=== PATIENT | male | born 1990 | race Caucasian/White ===

== ENCOUNTER 2018-12-31 10:33 | Emergency (ER) | payer MEDICARE ==
[2018-12-31] MEDS ORDERED: SULFAMETHOXAZOLE/TRIMETHOPRIM 800-160 MG TABLET PO ONE (10:51)
--- NOTE | 2018-12-31 10:54 | ER Document Report ---
HPI - HPI Patient complains to provider of: abscess Time Seen by Provider: 12/31/18 10:48 Onset: Last week Onset/Duration: Worse Quality of pain: Achy Pain Level: 2 Context: Patient states he has had a cyst to the right side of his neck for the past 2 years. Patient states that 5 days ago area became more tender swollen and red. Patient denies any fever or history of MRSA. Patient saw his primary doctor 2 days ago was placed on Keflex. Patient denies any improvement of his symptoms. Associated Symptoms: denies: Fever Exacerbated by: Movement Relieved by: Denies Similar symptoms previously: Yes Recently seen / treated by doctor: Yes - ROS ROS below otherwise negative: Yes Systems Reviewed and Negative: Yes All other systems reviewed and negative - CONSTITUTIONAL Constitutional: DENIES: Fever, Chills - NEURO Neurology: DENIES: Headache - GASTROINTESTINAL Gastrointestinal: DENIES: Nausea - MUSCULOSKELETAL Musculoskeletal: REPORTS: Neck Pain - DERM Skin Color: Erythema Notes: Abscess Past Medical History - General Information source: Patient - Social History Smoking Status: Never Smoker Frequency of alcohol use: Occasional Drug Abuse: None Occupation: none Family History: None, Reviewed & Not Pertinent Psychiatric Medical History: Reports: Hx Anxiety, Hx Depression, Hx Post Traumatic Stress Disorder Surgical Hx: Negative - Immunizations Hx Diphtheria, Pertussis, Tetanus Vaccination: Yes Vertical Provider Document - CONSTITUTIONAL Agree With Documented VS: Yes Exam Limitations: No Limitations General Appearance: WD/WN, No Apparent Distress - INFECTION CONTROL TRAVEL OUTSIDE OF THE [place] IN LAST 30 DAYS: No - HEENT HEENT: Atraumatic, Normocephalic - NECK Neck: Supple. negative: Lymphadenopathy-Left, Lymphadenopathy-Right Notes: Pointing abscess to right side of neck - RESPIRATORY Respiratory: Breath Sounds Normal, No Respiratory Distress - CARDIOVASCULAR Cardiovascular: Regular Rate, Regular Rhythm - MUSCULOSKELETAL/EXTREMETIES Musculoskeletal/Extremeties: MAEW - NEURO Level of Consciousness: Awake, Alert, Appropriate Motor/Sensory: No Motor Deficit - DERM Integumentary: Warm, Dry, Abscess - Pointing abscess to right side of neck Course - Vital Signs Vital signs: Temp Pulse Resp BP Pulse Ox 98.3 F 89 16 134/77 H 99 12/31/18 10:40 12/31/18 10:40 12/31/18 10:40 12/31/18 10:40 12/31/18 10:40 Procedures - Incision and Drainage Right Neck Type: Simple Anesthetic type: 1% Lidocaine Blade size: 11 I&D procedure: Betadine prep applied Incision Method: Incision made by scalpel Amount/type of drainage: mod amount of purulent drainage Adult Head Front/Back picture: 1 - abscess Discharge - Discharge Clinical Impression: Abscess, Encounter for incision and drainage procedure Condition: Good Disposition: HOME, SELF-CARE Instructions: Abscess ([facility]), Cephalexin ([facility]), Post Incision and Drainage, Trimethoprim-Sulfa ([facility]) Additional Instructions: Return immediately for any new or worsening symptoms Followup with your primary care provider, call tomorrow to make a followup appointment Continue to take your Keflex as previously prescribed in addition to the Ba ctrim. Prescriptions: Hydrocodone/Acetaminophen [Tekoa 5-325 mg Tablet] 1 tab PO Q6 PRN #8 tablet PRN Reason: Sulfamethoxazole/Trimethoprim [Bactrim Ds Tablet] 1 each PO BID #20 tablet Referrals: HOMERO VUONG MD [NO LOCAL MD] - Follow up as needed
[2018-12-31 11:37] VITALS: BP 129/76
== END 2018-12-31 11:35 | disposition home or self-care (01) ==
LOC: ER 10:33
DX: L02.11 Cutaneous abscess of neck (principal)
CPT/HCPCS: 99283; 10060; A9270

== ENCOUNTER 2019-09-07 17:24 | Emergency (ER) | payer MEDICARE ==
--- NOTE | 2019-09-07 18:08 | ER Document Report ---
ED Medical Screen (RME) - General Chief Complaint: Psych Problem Stated Complaint: SUICIDAL IDEATION Time Seen by Provider: 09/07/19 17:55 Primary Care Provider: JACQUELINE LUZ [Primary Care Provider] - Follow up as needed Notes: Patient is a 29-year-old male who presents to the emergency department with a chief complaint of suicidal ideation. Patient reports he has been drinking alcohol heavily and daily for the past few months. Patient reports today he is unsure how much he drank but he has had more than 10 shots of liquor. Patient reports he has had a lot going on. Patient reports that he recently lost his fr om from suicide and he has been down since then. Patient reports he has been having suicidal thoughts for a while but when asking the patient if he has a specific plan he becomes very quiet. TRAVEL OUTSIDE OF THE [place] IN LAST 30 DAYS: No - Related Data Allergies/Adverse Reactions: No Known Allergies Allergy (Verified 01/24/14 17:20) Home Medications: seroquel. prazasoin Past Medical History - Social History Frequency of alcohol use: Heavy Drug Abuse: None Renal/ Medical History: Denies: Hx Peritoneal Dialysis Psychiatric Medical History: Reports: Hx Anxiety, Hx Depression, Hx Post Traumatic Stress Disorder - Immunizations Hx Diphtheria, Pertussis, Tetanus Vaccination: Yes Physical Exam - Vital signs Vitals: Temp Pulse Resp BP Pulse Ox 97.4 F 102 H 20 121/70 99 09/07/19 17:47 09/07/19 17:47 09/07/19 17:47 09/07/19 17:47 09/07/19 17:47 Course - Re-evaluation Re-evalutation: 09/07/19 18:08 I have greeted and performed a rapid initial assessment of this patient. A comprehensive ED assessment and evaluation of the patient, analysis of test results and completion of the medical decision making process will be conducted by additional ED providers. - Vital Signs Vital signs: Temp Pulse Resp BP Pulse Ox 97.4 F 102 H 20 121/70 99 09/07/19 17:47 09/07/19 17:47 09/07/19 17:47 09/07/19 17:47 09/07/19 17:47 Doctor's Discharge - Discharge Referrals: [facility] [Primary Care Provider] - Follow up as needed
[2019-09-07 18:52] LABS: ABSOLUTE BASOPHILS # (AUTO) 0.1 10^3/uL (0.0-0.2); ABSOLUTE EOSINOPHILS # (AUTO) 0.3 10^3/uL (0.0-0.6); ABSOLUTE LYMPHOCYTES (AUTO) 2.7 10^3/uL (0.5-4.7); ABSOLUTE MONOCYTES (AUTO) 0.6 10^3/uL (0.1-1.4); ABSOLUTE NEUT (AUTO) 5.4 10^3/uL (1.7-8.2); BASOPHILS % (AUTO) 0.9 % (0-2); EOSINOPHILS % (AUTO) 2.9 % (0-6); HEMATOCRIT 45.6 % (37.9-51.0); HEMOGLOBIN 16.4 g/dL (13.5-17.0); LYMPHOCYTES % (AUTO) 29.9 % (13-45); MEAN CORPUSCULAR HEMOGLOBIN 31.9 pg (27.0-33.4); MEAN CORPUSCULAR VOLUME 89 fl (80-97); MONOCYTES % (AUTO) 6.6 % (3-13); PLATELET COUNT 191 10^3/uL (150-450); RED BLOOD COUNT 5.16 10^6/uL (4.35-5.55); RED CELL DISTRIBUTION WIDTH 13.2 % (11.5-14.0); SEGMENTED NEUTROPHILS % (AUTO) 59.7 % (42-78); TOTAL CELLS COUNTED % (AUTO) 100 %; WHITE BLOOD COUNT 9.1 10^3/uL (4.0-10.5)
[2019-09-07 18:55] LABS: APPEARANCE,URINE CLEAR; BILIRUBIN,URINE NEGATIVE (NEGATIVE); COLOR,URINE STRAW; GLUCOSE, URINE NEGATIVE (NEGATIVE); KETONES,URINE NEGATIVE (NEGATIVE); LEUKOCYTE ESTERASE,URINE NEGATIVE (NEGATIVE); NITRITE,URINE NEGATIVE (NEGATIVE); PROTEIN,URINE NEGATIVE (NEGATIVE); URINE SPECIFIC GRAVITY 1.009; UROBILINOGEN,URINE NEGATIVE mg/dL (<2.0)
[2019-09-07 19:07] LABS: ACETAMINOPHEN < 10 ug/mL (10-30); ALBUMIN 5.3 g/dL (3.5-5.0); ALCOHOL 214 mg/dL (NONE DETECTED); ALKALINE PHOSPHATASE 85 U/L (38-126); ANION GAP 15 (5-19); ASPARTATE AMINO TRANSFERASE 28 U/L (17-59); BILIRUBIN,DIRECT 0.1 mg/dL (0.0-0.4); BILIRUBIN,TOTAL 0.9 mg/dL (0.2-1.3); BLOOD UREA NITROGEN 15 mg/dL (7-20); CALCIUM 9.5 mg/dL (8.4-10.2); CARBON DIOXIDE 27 mmol/L (22-30); CHLORIDE 103 mmol/L (98-107); GLUCOSE 85 mg/dL (75-110); POTASSIUM 4.1 mmol/L (3.6-5.0); SALICYLATE < 1.0 mg/dL (2.0-20.0); TOTAL PROTEIN 8.4 g/dL (6.3-8.2)
[2019-09-07 19:12] LABS: URINE AMPHETAMINES SCREEN NEGATIVE; URINE BARBITURATES SCREEN NEGATIVE; URINE BENZODIAZEPINES SCREEN NEGATIVE; URINE COCAINE SCREEN NEGATIVE; URINE MARIJUANA (THC) SCREEN NEGATIVE; URINE METHADONE SCREEN NEGATIVE; URINE PHENCYCLIDINE SCREEN NEGATIVE
--- NOTE | 2019-09-07 20:15 | EKG REPORT ---
SEVERITY:- NORMAL ECG - SINUS RHYTHM : Confirmed by: Zulema Esparza MD 07-Sep-2019 20:14:31
--- NOTE | 2019-09-07 21:20 | ER Document Report ---
ED Psych Disorder / Suicide - General Chief Complaint: Psych Problem Stated Complaint: SUICIDAL IDEATION Time Seen by Provider: 09/07/19 17:55 Primary Care Provider: JACQUELINE LUZ [NO LOCAL MD] - Follow up as needed Notes: RMLanette NOTE: Patient is a 29-year-old male who presents to the emergency department with a chief complaint of suicidal ideation. Patient reports he has been drinking alcohol heavily and daily for the past few months. Patient reports today he is unsure how much he drank but he has had more than 10 shots of liquor. Patient reports he has had a lot going on. Patient reports that he recently lost his from from suicide and he has been down since then. Patient reports he has been having suicidal thoughts for a while but when asking the patient if he has a specific plan he becomes very quiet. MY HPI: When I attempt to speak with patient he rolls over in bed and will not engage. His eyes are open and he is making eye contact but will not answer any of my questions. He is moving all extremities without difficulty. When I ask him why he is in the ED he says, "I want to , now leave me alone!" TRAVEL OUTSIDE OF THE [place] IN LAST 30 DAYS: No - Related Data Allergies/Adverse Reactions: No Known Allergies Allergy (Verified 01/24/14 17:20) Home Medications: seroquel. prazasoin Past Medical History - General Information source: Patient - Social History Smoking Status: Never Smoker Frequency of alcohol use: Heavy Drug Abuse: None Family History: None, Reviewed & Not Pertinent Patient has suicidal ideation: Yes Patient has homicidal ideation: No Renal/ Medical History: Denies: Hx Peritoneal Dialysis Psychiatric Medical History: Reports: Hx Anxiety, Hx Depression, Hx Post Traumatic Stress Disorder - Immunizations Hx Diphtheria, Pertussis, Tetanus Vaccination: Yes Review of Systems - Review of Systems Constitutional: denies: Fever EENT: No symptoms reported Cardiovascular: No symptoms reported Respiratory: No symptoms reported Gastrointestinal: No symptoms reported Genitourinary: No symptoms reported Male Genitourinary: No symptoms reported Musculoskeletal: No symptoms reported Skin: No symptoms reported Hematologic/Lymphatic: No symptoms reported Neurological/Psychological: See HPI Physical Exam - Vital signs Vitals: Temp Pulse Resp BP Pulse Ox 97.4 F 102 H 20 121/70 99 09/07/19 17:47 09/07/19 17:47 09/07/19 17:47 09/07/19 17:47 09/07/19 17:47 - Notes Notes: GENERAL: Alert, interacts well. No acute distress. HEAD: Normocephalic, atraumatic. EYES: Pupils equal, round, and reactive to light. Extraocular movements intact. ENT: Oral mucosa moist, tongue midline. NECK: Full range of motion. Supple. Trachea midline. LUNGS: Clear to auscultation bilaterally, no wheezes, rales, or rhonchi. No respiratory distress. HEART: Regular rate and rhythm. No murmur ABDOMEN: Soft, non-tender. Non-distended. Bowel sounds present in all 4 quadrants. EXTREMITIES: Moves all 4 extremities spontaneously. No edema, normal radial and dorsalis pedis pulses bilaterally. No cyanosis. BACK: no cervical, thoracic, lumbar midline tenderness. No saddle anesthesia, normal distal neurovascular exam. NEUROLOGICAL: Alert and oriented x3. Normal speech. PSYCH: flat affect, depressed mood. SKIN: Warm, dry, normal turgor. No rashes or lesions noted. Course - Re-evaluation Re-evalutation: 09/07/19 21:18 At 0014 hours Pts etoh should be below 100 and he will be medically cleared for Psych eval. 09/07/19 00:15 I have again evaluated patient at bedside. He is conscious alert and oriented x4. States "I drank too much." I then asked him if he wants to hurt himself patient voices "I did." Patient will not tell me if he has a plan. he is denying HI. Patient is currently cleared for psychiatric evaluation. - Vital Signs Vital signs: Temp Pulse Resp BP Pulse Ox 97.4 F 102 H 20 121/70 99 09/07/19 17:47 09/07/19 17:47 09/07/19 17:47 09/07/19 17:47 09/07/19 17:47 - Laboratory Result Diagrams: 09/07/19 18:14 09/07/19 18:14 Laboratory results interpreted by me: 09/07/19 18:14 Total Protein 8.4 H Albumin 5.3 H Salicylates < 1.0 L Acetaminophen < 10 L Discharge - Discharge Clinical Impression: Suicidal thoughts, Alcohol abuse Condition: Stable Disposition: PSYCH HOSP/UNIT [facility]errals: [facility] [NO LOCAL MD] - Follow up as needed
[2019-09-08 10:10] VITALS: BP 133/84
--- NOTE | 2019-09-08 13:08 | ER Document Report ---
Doctor's Note Notes: 09/08/19 13:07 PHYSICAL EXAMINATION: GENERAL: Appears well, healthy, well-nourished, no acute distress. LUNGS: Equal breath sounds bilaterally and clear to auscultation. No wheezes rales or rhonchi. CARDIOVASCULAR: S1-S2, regular rate, regular rhythm. Radial pulses 2+, normal. ABDOMEN: Normoactive bowel sounds. Soft, nontender, no guarding, no rebound tenderness, and no masses palpated. PSYCH: Normal mood, normal affect. Patient states that he feels better now. He denies any suicidal or Malik ideation. Patient states that he got really drunk last night and now feels sober. Patient states that he had a "slip up." He states that he had not been drinking for a while, but he spoke with a friend which triggered some things from [place] and he ended up drinking yesterday all day. She states that he feels a little dehydrated. I offered him water and Gatorade. 09/08/19 15:39 Patient has a good plan for discharge. Mental health has evaluated the patient. Resending paperwork done by Dr. Capps. Patient is safe for discharge. Follow-up precautions were given. Verbal discharge instructions were given to the patient. They verbalized understanding. They are stable for discharge.
== END 2019-09-08 17:35 | disposition home or self-care (01) ==
LOC: ER 17:24
DX: R45.851 Suicidal ideations (principal); F10.10 Alcohol abuse, uncomplicated; F43.10 Post-traumatic stress disorder, unspecified
CPT/HCPCS: 36415; 80053; 80307; 81001; 85025; 93005; 93010; 99284

== ENCOUNTER 2019-10-26 17:10 | Emergency (ER) | payer MEDICARE ==
--- NOTE | 2019-10-26 17:43 | ER Document Report ---
ED Medical Screen (RME) - General Chief Complaint: Inability to Void Stated Complaint: DIFFICULTY URINATING Time Seen by Provider: 10/26/19 17:36 TRAVEL OUTSIDE OF THE [place] IN LAST 30 DAYS: No - HPI Notes: 10/26/19 17:42 Patient is a 29-year-old male with a history of mental health disorders and on prazosin and Seroquel who presents complaining of feeling of incomplete void, urinary urgency, feeling distended, voiding only a few drops out at a time that began today. Patient states that he urinated normally this morning, but since then has not been able to adequately urinate. Denies fever. No vomiting or diarrhea. I have treated and performed a rapid initial assessment of this patient. A comprehensive ED assessment and evaluation of the patient, analysis of test results and completion of medical decision making process will be conducted by additional ED providers. PHYSICAL EXAMINATION: GENERAL: Well-appearing, well-nourished and in no acute distress. A&Ox4. Answers questions appropriately. - Related Data Allergies/Adverse Reactions: No Known Allergies Allergy (Verified 01/24/14 17:20) Past Medical History - Social History Frequency of alcohol use: None Drug Abuse: None Renal/ Medical History: Denies: Hx Peritoneal Dialysis Psychiatric Medical History: Reports: Hx Anxiety, Hx Depression, Hx Post Traumatic Stress Disorder - Immunizations Hx Diphtheria, Pertussis, Tetanus Vaccination: Yes Physical Exam - Vital signs Vitals: Temp Pulse Resp BP Pulse Ox 98.7 F 88 17 131/84 H 98 10/26/19 17:29 10/26/19 17:29 10/26/19 17:29 10/26/19 17:29 10/26/19 17:29 Course - Vital Signs Vital signs: Temp Pulse Resp BP Pulse Ox 98.7 F 88 17 131/84 H 98 10/26/19 17:29 10/26/19 17:29 10/26/19 17:29 10/26/19 17:29 10/26/19 17:29
[2019-10-26] MEDS ORDERED: OXYCODONE HCL IR 5 MG TABLET PO ONE (18:12)
[2019-10-26] MEDS ORDERED: LIDOCAINE 2% URO-JET 5 ML KIT MM ONE (18:12)
[2019-10-26 19:56] LABS: HEMOGLOBIN 15.1 g/dL (13.5-17.0); MEAN CORPUSCULAR HEMOGLOBIN 31.1 pg (27.0-33.4); MEAN CORPUSCULAR VOLUME 89 fl (80-97); PLATELET COUNT 166 10^3/uL (150-450); RED BLOOD COUNT 4.85 10^6/uL (4.35-5.55); RED CELL DISTRIBUTION WIDTH 13.2 % (11.5-14.0)
--- NOTE | 2019-10-26 20:07 | ER Document Report ---
ED GI/ - General Mode of Arrival: Ambulatory Information source: Patient TRAVEL OUTSIDE OF THE [place] IN LAST 30 DAYS: No - HPI Patient complains to provider of: Urinary retention. No: Abdominal pain, Flank pain Onset: This afternoon Timing/Duration: Gradual Quality of pain: Pressure Pain Level: Denies Sexual history: Active Associated symptoms: Urinary hesitancy, Urinary retention. denies: Chills, Diarrhea, Dysuria, Fever Exacerbated by: Denies Relieved by: Denies Similar symptoms previously: No Recently seen / treated by doctor: No <HEMA MESA - Last Filed: 10/27/19 00:13> <STONE MERCADO - Last Filed: 10/27/19 02:22> - General Chief Complaint: Inability to Void Stated Complaint: DIFFICULTY URINATING Time Seen by Provider: 10/26/19 17:36 Primary Care Provider: THERESA GEORGE MD [NO LOCAL MD] - Follow up in 3-5 days (Dr. George stated if he wanted to drive to [place] you could see him at 8:45 in the morning or call his office for a appointment next week) Notes: Patient presents complaining of inability to void. Patient states that he voided normally 7:00 this morning and states that he had intercourse and had some difficulty voiding thereafter. Patient states he had voided small amounts throughout the day and then around 1 PM started to have difficulty voiding. Patient feels as though he still needs to void. Patient denies any abdominal pain or flank pain. He does state he has had problems with voiding after having intercourse in the past but that the symptoms typically resolve. Patient states today he has still had persistent difficulty in voiding. Patient denies any known prostate problems. (HEMA MESA) - Related Data Allergies/Adverse Reactions: No Known Allergies Allergy (Verified 01/24/14 17:20) Past Medical History - General Information source: Patient - Social History Smoking Status: Never Smoker Frequency of alcohol use: None Drug Abuse: None Occupation: None Lives with: Spouse/Significant other Family History: None, Reviewed & Not Pertinent Patient has suicidal ideation: No Patient has homicidal ideation: No Renal/ Medical History: Denies: Hx Peritoneal Dialysis Psychiatric Medical History: Reports: Hx Anxiety, Hx Depression, Hx Post Traumat ic Stress Disorder Surgical Hx: Negative - Immunizations Hx Diphtheria, Pertussis, Tetanus Vaccination: Yes <HEMA MESA - Last Filed: 10/27/19 00:13> Review of Systems - Review of Systems Constitutional: No symptoms reported. denies: Fever, Recent illness EENT: No symptoms reported Cardiovascular: No symptoms reported Respiratory: No symptoms reported Gastrointestinal: No symptoms reported. denies: Abdominal pain, Nausea, Vomiting Genitourinary: Retention. denies: Dysuria, Flank pain, Hematuria Male Genitourinary: No symptoms reported Musculoskeletal: No symptoms reported. denies: Back pain Skin: No symptoms reported Hematologic/Lymphatic: No symptoms reported Neurological/Psychological: No symptoms reported <HEMA MESA - Last Filed: 10/27/19 00:13> Physical Exam - General General appearance: Appears well, Alert In distress: None - HEENT Head: Normocephalic, Atraumatic Eyes: Normal Conjunctiva: Normal Nasal: Normal Mouth/Lips: Normal Mucous membranes: Normal Neck: Normal, Supple. No: Lymphadenopathy - Respiratory Respiratory status: No respiratory distress Chest status: Nontender Breath sounds: Normal. No: Rales, Rhonchi, Stridor, Wheezing Chest palpation: Normal - Cardiovascular Rhythm: Regular Heart sounds: S1 appreciated, S2 appreciated - Abdominal Inspection: Normal Distension: Distended bladder Bowel sounds: Normal Tenderness: Nontender Organomegaly: No organomegaly - Back Back: Normal, Nontender. No: CVA tenderness - Extremities General upper extremity: Normal inspection, Normal strength General lower extremity: Normal inspection, Normal strength - Neurological Neuro grossly intact: Yes Cognition: Normal Orientation: AAOx4 Som Coma Scale Eye Opening: Spontaneous Allred Coma Scale Verbal: Oriented Allred Coma Scale Motor: Obeys Commands Allred Coma Scale Total: 15 - Psychological Associated symptoms: Normal affect, Normal mood - Skin Skin Temperature: Warm Skin Moisture: Dry Skin Color: Normal <HEMA MESA - Last Filed: 10/27/19 00:13> - Vital signs Vitals: Temp Pulse Resp BP Pulse Ox 98.7 F 88 17 131/84 H 98 10/26/19 17:29 10/26/19 17:29 10/26/19 17:29 10/26/19 17:29 10/26/19 17:29 Course - Laboratory Result Diagrams: 10/26/19 19:40 10/26/19 19:40 <HEMA MESA - Last Filed: 10/27/19 00:13> - Laboratory Result Diagrams: 10/26/19 19:40 10/26/19 19:40 - Diagnostic Test Radiology reviewed: Image reviewed, Reports reviewed <STONE MERCADO - Last Filed: 10/27/19 02:22> - Re-evaluation Re-evalutation: 10/26/2019 23:00 RN states that she obtain a post void bladder scan which had 350 mL's of urine still in the bladder. 10/27/19 00:07 Bedside report and handoff given to Kalyani Mercado [employer] Patient states that he has been up to void but does not feel as though he empties his bladder. (HEMA MESA) 10/27/19 02:20 Lab results bladder scan discussed with Dr. George urology at [facility]. He stated the patient could come to his office at 8:45 in the morning to follow-up with his hematuria and urinary retention or he could schedule an appointment for next week. The CAT scan was negative for any acute changes. Patient was able to void 200 cc just before I called Dr. george and he stated he actually felt better. He states he will probably call tomorrow and get a scheduled visit for next week. Patient will be discharged home. (STONE MERCADO) - Vital Signs Vital signs: Temp Pulse Resp BP Pulse Ox 97.9 F 77 16 148/84 H 99 10/27/19 01:43 10/27/19 01:43 10/27/19 01:43 10/27/19 01:43 10/27/19 01:43 - Laboratory Laboratory results interpreted by me: 10/26/19 10/26/19 19:40 21:25 WBC 14.0 H Seg Neuts % (Manual) 86 H Lymphocytes % (Manual) 6 L Monocytes % (Manual) 2 L Abs Neuts (Manual) 12.6 H Urine Protein 30 H Urine Blood LARGE H Discharge <HEMA MESA - Last Filed: 10/27/19 00:13> <STONE MERCADO - Last Filed: 10/27/19 02:22> - Discharge Clinical Impression: Urinary retention Hematuria Qualifiers: Hematuria type: gross Qualified Code(s): R31.0 - Gross hematuria Condition: Stable Disposition: HOME, SELF-CARE Additional Instructions: Urinary Retention Urinary retention is inability to empty the bladder. It can result from a urine infection, or from mechanical problems such as an enlarged prostate gland or swelling of the urethra. Drugs or alcohol can also lead to urine retention. The condition is usually treated by passage of a catheter. If the physician thinks the problem will continue, the catheter may be left in place for a few days. Sometimes drugs are used to stimulate the bladder if the physician feels that inadequate bladder contraction is the cause. If the condition leading to the retention is a chronic one, such as an enlarged prostate, you will be referred to a specialist for further care. Call the physician or return if you develop fever, flank or back pain, pain on urination, or recurrent difficulty passing the urine. Hematuria Hematuria, or blood in your urine, can be caused by minor medical problems, such as a bladder infection, or by more serious medical conditions, such as kidney stones or even tumors of the bladder or kidney. If the cause of the hematuria is known (such as a bladder infection) and can be treated, it may not need further evaluation. If the cause is not known, it will usually require further evaluation by a specialist, such as a urologist. In particular, unexplained hematuria in the older patient must be evaluated to rule out a serious condition, such as a bladder or kidney tumor. If the hematuria worsens or you are passing clots and then are unable to urinate, you should be re-evaluated. A catheter may need to be placed in the bladder to permit passage of urine. If you develop high fever, severe pain, or other new or worsening symptoms, return to the Emergency Department for re- evaluation. Acetaminophen Acetaminophen may be taken for pain relief or fever control. It's much safer than aspirin, offering a wider range of "safe" dosages. It is safe during . Some brand names are Tylenol, Panadol, Datril, Anacin 3, Tempra, and Liquiprin. Acetaminophen can be repeated every four hours. The following are maximum recommended dosages: WEIGHT Dose Drops Elixir Chewabl e(80mg) (LBS.) drprs=droppers tsp=teaspoon 6 40 mg .4 ml (1/2) 6-11 80 mg .8 ml (full) 1/2 tsp 1 tab 12-16 120 mg 1 1/2 drprs 3/4 tsp 1 1/2 tabs 17-23 160 mg 2 drprs 1 tsp 2 tabs 24-30 240 mg 3 drprs 1 1/2 tsp 3 tabs 30-35 320 mg 2 tsp 4 tabs 36-41 360 mg 2 1/4 tsp 4 1/2 tabs 42-47 400 mg 2 1/2 tsp 5 tabs 48-53 480 mg 3 tsp 6 tabs 54-59 520 mg 3 1/4 tsp 6 1/2 tabs 60-64 560 mg 3 1/2 tsp 7 tabs 65-70 600 mg 3 3/4 tsp 7 1/2 tabs 71-76 640 mg 4 tsp 8 tabs 77-82 720 mg 4 1/2 tsp 9 tabs 83-88 800 mg 5 tsp 10 tabs >89 pounds or adults 650 mg to 900 mg Acetaminophen can be repeated every four hours. Maximum daily dose not to exceed 4000 mg. These maximum recommended dosages are slightly higher than the dosages written on the product container, but these dosages are very safe and well below the toxic dosage for acetaminophen. I have discussed your lab results and your CT results with you and given you a written report of the CT and lab results. Please take with these with you to y our follow-up appointment with the urologist. I have called a Dr. George who stated you could go to his office at 8:45 in the morning or you could call for an appointment and follow-up next week as long as you are voiding. FOLLOW-UP CARE: If you have been referred to a physician for follow-up care, call the physicians office for an appointment as you were instructed or within the next two days. If you experience worsening or a significant change in your symptoms, notify the physician immediately or return to the Emergency Department at any time for re-evaluation. Forms: Elevated Blood Pressure, Return to Work Referrals: THERESA GEORGE MD [NO LOCAL MD] - Follow up in 3-5 days (Dr. George stated if he wanted to drive to [place] you could see him at 8:45 in the morning or call his office for a appointment next week)
[2019-10-26 20:12] LABS: ALBUMIN 4.8 g/dL (3.5-5.0); ALKALINE PHOSPHATASE 73 U/L (38-126); ANION GAP 9 (5-19); ASPARTATE AMINO TRANSFERASE 29 U/L (17-59); BILIRUBIN,DIRECT 0.2 mg/dL (0.0-0.4); BILIRUBIN,TOTAL 0.4 mg/dL (0.2-1.3); BLOOD UREA NITROGEN 19 mg/dL (7-20); CALCIUM 9.8 mg/dL (8.4-10.2); CARBON DIOXIDE 29 mmol/L (22-30); CHLORIDE 102 mmol/L (98-107); GLUCOSE 83 mg/dL (75-110); POTASSIUM 4.5 mmol/L (3.6-5.0); TOTAL PROTEIN 7.6 g/dL (6.3-8.2)
[2019-10-26 20:21] LABS: ABSOLUTE MONOCYTES # (MANUAL) 0.3 10^3/uL (0.1-1.4); BAND NEUTROPHILS % (MANUAL) 4 % (3-5); BASOPHILS % (MANUAL) 0 % (0-2); EOSINOPHILS % (MANUAL) 1 % (0-6); LYMPHOCYTES % (MANUAL) 6 % (13-45); MONOCYTES % (MANUAL) 2 % (3-13); SEGMENTED NEUTROPHILS % (MAN) 86 % (42-78); TOTAL CELLS COUNTED 100
[2019-10-26 20:22] LABS: PLATELET COMMENT ADEQUATE; RBC MORPHOLOGY COMMENT NORMO-CYTIC/CHROMIC
[2019-10-26 21:58] LABS: APPEARANCE,URINE SLIGHTLY-CLOUDY; BILIRUBIN,URINE NEGATIVE (NEGATIVE); COLOR,URINE YELLOW; GLUCOSE, URINE NEGATIVE (NEGATIVE); KETONES,URINE NEGATIVE (NEGATIVE); PROTEIN,URINE 30 mg/dL (NEGATIVE); URINE SPECIFIC GRAVITY 1.021; UROBILINOGEN,URINE NEGATIVE mg/dL (<2.0)
--- NOTE | 2019-10-27 00:50 | RADIOLOGY REPORT (SQ) ---
CT ABDOMEN PELVIS WITH IV CONTRAST EXAM DATE: 10/26/2019 8:04 PM [employer] HISTORY: Urinary retention. Hematuria. COMPARISON: None. TECHNIQUE: CT scan of the abdomen and pelvis was performed with IV contrast. This exam was performed according to our departmental dose-optimization program, which includes automated exposure control, adjustment of the mA and/or kV according to patient size and/or use of iterative reconstruction technique. FINDINGS: The lung bases are clear. No pleural or pericardial effusions. There is no hiatal hernia. The liver, spleen, pancreas, gallbladder, adrenal glands, and kidneys are unremarkable. No urinary stones are seen. The pelvic organs are also unremarkable. No small bowel obstruction. The appendix is normal. There is no evidence of diverticulitis. No intraperitoneal free fluid or free air is identified. The aorta is normal caliber. No acute bony findings are seen. There is no pathologic body wall hernia. IMPRESSION: No acute abdominal or pelvic findings.
[2019-10-27 01:45] VITALS: BP 148/84
== END 2019-10-27 02:28 | disposition home or self-care (01) ==
LOC: ER 17:10
DX: R33.9 Retention of urine, unspecified (principal); R31.0 Gross hematuria; R39.11 Hesitancy of micturition
CPT/HCPCS: 99284; 36415; 85025; 80053; 81001; 74177; C1758; A9270; J3490